=== PATIENT | female | born 1960 | race Caucasian/White ===

== ENCOUNTER 2022-10-27 12:14 | Emergency (ER) | payer OTHER, SELFPAY ==
[2022-10-27 12:34] VITALS: BP 161/89; PULSE 68; RESP 20; TEMP 36.8; O2SAT 96; BMI 25.8
--- NOTE | 2022-10-27 12:46 | ED.DENTAL1 ---
HPI - Dental/Oral General Chief complaint: Dental/Oral Stated complaint: DENTAL EARACHE Time Seen by Provider: 10/27/22 12:46 Source: patient Mode of arrival: walk-in Limitations: no limitations History of Present Illness HPI Narrative: Patient presents emergency department complaining of dental pain. Patient states she developed right upper molar dental pain 5 days ago. She made an appointment to follow-up with her dentist on Saturday. However today the patient woke up with right otalgia, speaking feeling dizzy, and thinks that she could have an ear infection. She denies any headache. She denies any fever, chills, or cough. She denies any throat swelling or difficulty swallowing. She has not taking anything at home. She denies any neck pain, chest pain, shortness of breath. Related Data Previous Rx's Medication Instructions Recorded clindamycin HCl 300 mg capsule 300 mg PO Q8H 10 days #30 caps 10/27/22 meclizine 25 mg tablet 25 mg PO TID PRN dizziness #20 tabs 10/27/22 Allergies Allergy/AdvReac Type Severity Reaction Status Date / Time Penicillins Allergy Severe Verified 10/27/22 12:38 Review of Systems ROS Status of ROS 10 or more systems reviewed and unremarkable except as noted in history and below Exam Narrative Exam Narrative: Nurses notes and vital signs reviewed and patient is not hypoxic. General: Nontoxic, Well-appearing and in no apparent distress. Skin: Warm, dry, no pallor noted. No Rash Head: Normocephalic, atraumatic. Neck: Supple, non-tender. Eye: Pupils are equal, round and EOMI. No scleral icterus. Ears, Nose, Mouth, and Throat: TM clear, no posterior oropharynx erythema or nasal mucosal hypertrophy, uvula is mid-line Oral mucosa is moist, Tenderness to percussion of molar number 2.No apical abscess noted. Cardiovascular: Regular Rate and Rhythm without murmur, gallop or rub. Respiratory: No accessory muscle use or respiratory distress. Lungs are clear to auscultation, no wheezing, rales or rhonchi Chest Wall: no tenderness Back: No midline thoracic or lumbar vertebral tenderness. No CVA tenderness Musculoskeletal: normal ROM, no calf or popliteal tenderness, no lower extremity edema/swelling GI: Abdomen is soft, non-distended. Normal bowel sounds. No masses appreciated. No tenderness to palpation. No rebound, guarding, or rigidity noted. Neurological: A&O x4. No cranial nerve dysfunction observed. No truncal ataxia. Moves all extremities. Sensation intact. Psychiatric: Cooperative and interactive. Normal mood and affect. Constitutional Vital Signs, click to edit/add: Last Vital Signs Temp 98.2 F 10/27/22 12:34 Pulse 68 10/27/22 12:34 Resp 20 10/27/22 12:34 BP 161/89 H 10/27/22 12:34 Pulse Ox 96 10/27/22 12:34 O2 Del Method Room Air 10/27/22 12:34 Course Vital Signs Vital signs: Vital Signs Temperature 98.2 F 10/27/22 12:34 Pulse Rate 68 10/27/22 12:34 Respiratory Rate 10/27/22 12:34 Blood Pressure 161/89 H 10/27/22 12:34 Pulse Oximetry 96 10/27/22 12:34 Oxygen Delivery Method Room Air 10/27/22 12:34 Temperature 98.2 F 10/27/22 12:34 Pulse Rate 10/27/22 12:34 Respiratory Rate 10/27/22 12:34 Blood Pressure 161/89 H 10/27/22 12:34 Pulse Oximetry 96 10/27/22 12:34 Oxygen Delivery Method Room Air 10/27/22 12:34 MDM - Dental/Oral MDM Narrative Medical decision making narrative: Patient's history and physical are consistent with odontalgia, otalgia, and vertigo. Patient advised me to place her on clindamycin to cover for possible dental infection and cover her with Antivert for vertigo. She is agreeable with plan. She will follow up with her dentist on Saturday as scheduled. At this time the patient is without objective evidence of an acute process requiring hospitalization or inpatient management. The patient has remained hemodynamically stable. No additional indication for emergent studies at this time. I answered all questions. Discussed discharge instructions including standard anticipatory guidance and what should prompt a return to the emergency department, including if they get worse are not getting better or develops any new or concerning symptoms. I've given them specific time frame in which to follow-up, and who to follow-up with. The patient demonstrates understanding. Patient is nontoxic and stable for discharge with outpatient follow-up. This note was created with the assistance of a speech recognition program. Although the intention is to generate documents that actually reflects the content of the visit, no guarantees can be provided that every mistake has been identified and corrected by editing. Differential Diagnosis Differential diagnosis: Likely gingival abscess, dental caries and toothache Discharge Plan Discharge Chief Complaint: Dental/Oral Clinical Impression: Dental caries, Vertigo, Otalgia of right ear Patient Disposition: Home, Self-Care Condition: Good Mode of Transportation: Private Vehicle Prescriptions / Home Meds: New clindamycin HCl 300 mg capsule 300 mg PO Q8H 10 Days Qty: 30 0RF meclizine 25 mg tablet 25 mg PO TID PRN (Reason: dizziness) Qty: 20 0RF Instructions: Vertigo (ED), Toothache (ED) Stand Alone Forms: Portal Instructions Referrals: Physician,Non-Staff, MD [Primary Care Provider] - 1 week Discharge Date/Time: 10/27/22 13:17
== END 2022-10-27 13:17 | disposition home or self-care (01) ==
PROVIDERS: Emergency Provider Emergency Medicine; Family Provider Family Medicine
DX: K02.9 Dental caries, unspecified (principal); R42 Dizziness and giddiness; H92.01 Otalgia, right ear
CPT/HCPCS: 99283